=== PATIENT | female | born 1945 | race Caucasian/White ===

== ENCOUNTER → 2016-12-16 | Outpatient (CLI) | payer MEDICARE ==
--- NOTE | 2016-12-19 11:07 | MM ---
Reason for exam: screening (asymptomatic). Last mammogram was performed 1 year ago. History: Patient is postmenopausal. Family history of endometrial cancer in cousin. Benign MG stereo VAD BX LT of the left breast, December 10, 2014. Physical Findings: A clinical breast exam by your physician is recommended on an annual basis and results should be correlated with mammographic findings. MG 3D Screening Mammo W/Cad Bilateral CC and MLO view(s) were taken. Prior study comparison: December 16, 2015, bilateral MG 3d screening mammo w/cad. June 12, 2015, left breast MG 3d diag mammo w/cad LT. December 04, 2014, left breast MG work up mamm w CAD LT. There are scattered fibroglandular densities. Previous mammotome biopsy in the left breast. There is no discrete abnormality. ASSESSMENT: Benign, BI-RAD 2 RECOMMENDATION: Routine screening mammogram of both breasts in 1 year.
== END | disposition home or self-care (01) ==
LOC: RADMAMWWP 12:48
PROVIDERS: ATTEND Family Medicine
DX: Z12.31 Encounter for screening mammogram for malignant neoplasm of breast (principal)
CPT/HCPCS: 77063; G0202

== ENCOUNTER 2017-09-26 13:01 | Inpatient (IN) | payer MEDICARE ==
[2017-09-26] MEDS ORDERED: SODIUM CHLORIDE 0.9% 1,000 ML IV STA (15:20)
[2017-09-26 16:40] LABS: Basophils % (A) 1 %; Eosinophils # (A) 0.1 k/uL (0-0.7); Eosinophils % (A) 2 %; HCT 40.2 % (34.0-46.0); HGB 13.6 gm/dL (11.4-16.0); Lymphocytes # (A) 0.9 k/uL (1.0-4.8); Lymphocytes % (A) 12 %; MCH 28.6 pg (25.0-35.0); MCHC 33.8 g/dL (31.0-37.0); MCV 84.6 fL (80.0-100.0); Monocytes # (A) 0.4 k/uL (0-1.0); Monocytes % (A) 6 %; Neutrophils # (A) 5.8 k/uL (1.3-7.7); Neutrophils % (A) 79 %; Platelet Count 157 k/uL (150-450); RBC 4.76 m/uL (3.80-5.40); RDW 13.6 % (11.5-15.5); WBC 7.3 k/uL (3.8-10.6)
[2017-09-26] MEDS: LABETALOL 5 MG/ML VIAL MDV IVP SCH ×2 (16:42→18:00)
--- NOTE | 2017-09-26 16:46 | XR ---
EXAMINATION TYPE: XR chest 2V DATE OF EXAM: 09/26/2017 COMPARISON: NONE HISTORY: Chest pain TECHNIQUE: Frontal and lateral views of the chest are obtained. FINDINGS: There is no heart failure nor confluent pneumonic infiltrate. Thoracic aorta is atheromato us. There are sternal wires. Costophrenic angles are clear. There is some spurring in the thoracic sp ine. IMPRESSION: No active cardiopulmonary disease.
[2017-09-26 16:48] LABS: Albumin 4.2 g/dL (3.5-5.0); Calcium 9.7 mg/dL (8.4-10.2); Potassium 4.7 mmol/L (3.5-5.1); Total Protein 7.1 g/dL (6.3-8.2)
[2017-09-26 17:01] LABS: Partial Thromboplastin Time 28.1 sec (22.0-30.0)
[2017-09-26 17:15] LABS: Troponin I 0.09 ng/mL (0.000-0.034)
[2017-09-26] MEDS ORDERED: ENALAPRILAT 1.25 MG/ML 1 ML VIAL IVP STA ×2 (18:34→20:38)
--- NOTE | 2017-09-26 18:54 | ED ---
General Adult HPI - General Chief complaint: Recheck/Abnormal Lab/Rx Stated complaint: Cannot Eat Time Seen by Provider: 09/26/17 15:14 Source: patient Mode of arrival: wheelchair Limitations: no limitations - History of Present Illness Initial comments: 72 years old female comes in with a very high blood pressure and is saying she has not been able to eat or drink anything since Monday she has a history of esophageal narrowing she has seen Dr. Daniel in the past for esophageal dilatation blood pressure is quite high because she was not able to take her medications she tried to drink and no eating something comes right back. She denies any headache no neck stiffness, has nausea and been throwing up every time she tries to eat no abdominal pain no frequency urgency dysuria - Related Data Home Medications Medication Instructions Recorded Confirmed Aspirin EC [Ecotrin] 81 mg PO DAILY 11/03/15 09/26/17 Loratadine [Claritin] 10 mg PO DAILY 11/03/15 09/26/17 Metoprolol Tartrate [Lopressor] 50 mg PO BID 11/03/15 09/26/17 Omeprazole [PriLOSEC] 20 mg PO DAILY 11/03/15 09/26/17 Ramipril [Altace] 5 mg PO DAILY 11/03/15 09/26/17 Simvastatin [Zocor] 40 mg PO DAILY 11/03/15 09/26/17 Sucralfate [Carafate] 1 gm PO BID 11/03/15 09/26/17 amLODIPine [Norvasc] 2.5 mg PO DAILY 09/26/17 09/26/17 Allergies Allergy/AdvReac Type Severity Reaction Status Date / Time ibuprofen [From Motrin] Allergy Unknown Verified 09/26/17 15:45 Penicillins Allergy Anaphylaxis Verified 09/26/17 15:45 Sulfa (Sulfonamide Allergy Unknown Verified 09/26/17 15:45 Antibiotics) Review of Systems ROS Statement: Those systems with pertinent positive or pertinent negative responses have been documented in the HPI. ROS Other: All systems not noted in ROS Statement are negative. Past Medical History Past Medical History: Deep Vein Thrombosis (DVT), GERD/Reflux, Hyperlipidemia, Hypertension Additional Past Medical History / Comment(s): dysphagia, hx of dvt in leg, seasonal allergies History of Any Multi-Drug Resistant Organisms: None Reported Past Surgical History: Appendectomy, Hysterectomy, Tonsillectomy Additional Past Surgical History / Comment(s): valve replacement, previous egd with dilation Past Anesthesia/Blood Transfusion Reactions: No Reported Reaction Past Psychological History: No Psychological Hx Reported Smoking Status: Never smoker Past Alcohol Use History: None Reported Past Drug Use History: None Reported General Exam - General Exam Comments Initial Comments: General: The patient is awake and alert, in no distress no respiratory distress she is not drooling like typical esophageal foreign body well Skin: Skin is warm and dry and no rashes or lesions are noted. Eye: Pupils are equal, round and reactive to light, extra-ocular movements are intact; there is normal conjunctiva bilaterally. Ears, nose, mouth and throat: There are moist mucous membranes and no oral lesions. Neck: The neck is supple, there is no tenderness or JVD. Cardiovascular: There is a regular rate and rhythm. No murmur, rub or gallop is appreciated. Respiratory: To auscultation bilateral, no wheezing no rhonchi no distress respiratory san noticed Gastrointestinal: Soft, non-distended, non-tender abdomen without masses or organomegaly noted. There is no rebound or guarding present. Bowel sounds are unremarkable. Back: There is no tenderness to palpation in the midline. There is no obvious deformity. Musculoskeletal: Normal ROM, no tenderness, There is no pedal edema. There is no calf tenderness or swelling. No cords were appreciated. Neurological: CN II-XII intact, Cranial nerves III through XII are intact. There are no obvious motor or sensory deficits. Coordination appears grossly intact. Speech is normal. Psychiatric: Cooperative, appropriate mood & affect, normal judgment. Limitations: no limitations Course Vital Signs 09/26/17 09/26/17 09/26/17 14:03 16:45 17:38 Temperature 98.1 F Pulse Rate 78 81 85 Respiratory 20 18 16 Rate Blood Pressure 219/92 155/66 184/78 O2 Sat by Pulse 98 98 98 Oximetry 09/26/17 18:05 Temperature Pulse Rate 78 Respiratory 20 Rate Blood Pressure 181/74 O2 Sat by Pulse 99 Oximetry EKG Findings - EKG Comments: EKG Findings:: EKG is normal sinus rhythm ventricular rate is 84 OK interval is 160 QRS duration is 88 QT/QTc is 414/43 and aVF this EKG does not reveal any ST elevation or ST depression noticed T-wave inversion in aVL Medical Decision Making - Lab Data Result diagrams: 09/26/17 16:21 09/26/17 16:21 Lab Results 09/26/17 09/26/17 09/26/17 Range/Units 16:21 16:21 16:21 WBC 7.3 (3.8-10.6) k/uL RBC 4.76 (3.80-5.40) m/uL Hgb 13.6 (11.4-16.0) gm/dL Hct 40.2 (34.0-46.0) % MCV 84.6 (80.0-100.0) fL MCH 28.6 (25.0-35.0) pg MCHC 33.8 (31.0-37.0) g/dL RDW 13.6 (11.5-15.5) % Plt Count 157 (150-450) k/uL Neutrophils % 79 % Lymphocytes % 12 % Monocytes % 6 % Eosinophils % 2 % Basophils % 1 % Neutrophils # 5.8 (1.3-7.7) k/uL Lymphocytes # 0.9 L (1.0-4.8) k/uL Monocytes # 0.4 (0-1.0) k/uL Eosinophils # 0.1 (0-0.7) k/uL Basophils # 0.0 (0-0.2) k/uL PT (9.0-12.0) sec INR (<1.2) APTT (22.0-30.0) sec Sodium 145 (137-145) mmol/L Potassium 4.7 (3.5-5.1) mmol/L Chloride 107 (98-107) mmol/L Carbon Dioxide 24 (22-30) mmol/L Anion Gap 14 mmol/L BUN 23 H (7-17) mg/dL Creatinine 1.09 H (0.52-1.04) mg/dL Est GFR (CKD-EPI)AfAm 59 (>60 ml/min/1.73 sqM) Est GFR (CKD-EPI)NonAf 51 (>60 ml/min/1.73 sqM) Glucose 83 (74-99) mg/dL Calcium 9.7 (8.4-10.2) mg/dL Magnesium 2.0 (1.6-2.3) mg/dL Total Bilirubin 1.0 (0.2-1.3) mg/dL AST 29 (14-36) U/L ALT 20 (9-52) U/L Alkaline Phosphatase 84 (38-126) U/L Total Creatine Kinase 92 (30-135) U/L CK-MB (CK-2) 1.0 (0.0-2.4) ng/mL CK-MB (CK-2) Rel Index 1.1 Troponin I 0.090 H* (0.000-0.034) ng/mL Total Protein 7.1 (6.3-8.2) g/dL Albumin 4.2 (3.5-5.0) g/dL Lipase 55 (23-300) U/L 09/26/17 Range/Units 16:21 WBC (3.8-10.6) k/uL RBC (3.80-5.40) m/uL Hgb (11.4-16.0) gm/dL Hct (34.0-46.0) % MCV (80.0-100.0) fL MCH (25.0-35.0) pg MCHC (31.0-37.0) g/dL RDW (11.5-15.5) % Plt Count (150-450) k/uL Neutrophils % % Lymphocytes % % Monocytes % % Eosinophils % % Basophils % % Neutrophils # (1.3-7.7) k/uL Lymphocytes # (1.0-4.8) k/uL Monocytes # (0-1.0) k/uL Eosinophils # (0-0.7) k/uL Basophils # (0-0.2) k/uL PT 10.0 (9.0-12.0) sec INR 1.0 (<1.2) APTT 28.1 (22.0-30.0) sec Sodium (137-145) mmol/L Potassium (3.5-5.1) mmol/L Chloride (98-107) mmol/L Carbon Dioxide (22-30) mmol/L Anion Gap mmol/L BUN (7-17) mg/dL Creatinine (0.52-1.04) mg/dL Est GFR (CKD-EPI)AfAm (>60 ml/min/1.73 sqM) Est GFR (CKD-EPI)NonAf (>60 ml/min/1.73 sqM) Glucose (74-99) mg/dL Calcium (8.4-10.2) mg/dL Magnesium (1.6-2.3) mg/dL Total Bilirubin (0.2-1.3) mg/dL AST (14-36) U/L ALT (9-52) U/L Alkaline Phosphatase (38-126) U/L Total Creatine Kinase (30-135) U/L CK-MB (CK-2) (0.0-2.4) ng/mL CK-MB (CK-2) Rel Index Troponin I (0.000-0.034) ng/mL Total Protein (6.3-8.2) g/dL Albumin (3.5-5.0) g/dL Lipase (23-300) U/L Critical Care Time Total Critical Care Time: 45 Critical Care Time: On arrival patient's blood pressure was 219 systolic, labetalol IV was tried, it did drop the blood pressure slightly tender patient will go up there in the meantime we noticed her troponin was elevated they could be something secondary to very high blood pressure sore and organ damage no EKG was unremarkable EKG was reviewed by myself I plan to put her on now heparin but then she might need a procedure to dilate her esophagus just wanted go ahead and try to avoid hold off the heparinization because AR trigger massive bleeding when she get her esophageal procedure done in the meantime she will go on now and nitro sugar beta blockers she will go on some IV blood pressure medications just water and dose of Vasotec 2.150 IV to control his blood pressure and she be admitted to Dr. Lemon's office all and discussed with Dr. Lemon with heparinization Disposition Clinical Impression: Esophageal stenosis, Elevated troponin Disposition: ADMITTED IP TO THIS HOSP Condition: Good Referrals: Roshan Rahman MD [Primary Care Provider] - 1-2 days
[2017-09-26] MEDS ORDERED: MORPHINE SULFATE/PF 10MG/10ML VL IVP PRN (18:58)
[2017-09-26] MEDS ORDERED: METOPROLOL TARTRATE 5 MG/5 ML VIAL IVP PRN (19:06)
[2017-09-26] MEDS ORDERED: ENALAPRILAT 1.25 MG/ML 1 ML VIAL IVP PRN (19:06)
[2017-09-26] MEDS: DEXTROSE 5%-0.9% NACL 1,000 ML IV SCH (21:17)
[2017-09-26 23:10] LABS: Troponin I 0.062 ng/mL (0.000-0.034)
[2017-09-27 04:36] LABS: Troponin I 0.05 ng/mL (0.000-0.034)
[2017-09-27 04:44] LABS: Cholesterol 126 mg/dL (<200); HDL Cholesterol 43 mg/dL (40-60); LDL Cholesterol,Calculated 58 mg/dL (0-99); Triglycerides 123 mg/dL (<150)
[2017-09-27] MEDS: NITROGLYCERIN OINT 1 INCH/GM PACKET TOPICAL SCH ×3 (05:33→14:48)
--- NOTE | 2017-09-27 08:47 | P.CONS ---
History of Present Illness - Reason for Consult Consult date: 09/27/17 Dysphagia Requesting physician: Fatou Luciano - History of Present Illness 72-year-old female well known to Dr. Menchaca service the past medical history of tight distal esophageal stricture last dilation 2015. Patient ate a brisket meal on Monday shortly thereafter developed increased chest pain dysphagia with a few emesis of partially undigested food. Denies hematemesis hematochezia melena. She has been unable to take her home medications and presented to the emergency room with elevated blood pressures. She has been given intravenous blood pressure medications with improvement in systolic blood pressures. Presently she is resting comfortably. Denies chest pain or shortness of breath. She is able to swallow very small amount of liquids such as water but has been unable to tolerate any solid substances and Monday. White count 7.3. Hemoglobin 13.6. INR 1.0. Platelet 157. Troponin 0.05- 0.09. Chest x-ray no active cardiopulmonary disease. Review of Systems Constitutional: Denies fever, chills, sweats, weight gain, or loss. HEENT: Negative for migraines, blurred vision or loss, earaches, drainage, tinnitus, oral mucosal lesions, dysphagia, or odynophagia. CARDIAC: Hypertension. Hyperlipidemia. Negative for chest pain, arrhythmias, or palpitation. RESPIRATORY: DVT. Negative for shortness of breath, hemoptysis, cough, or sputum production. GI: See HPI for pertinent findings. : Negative for hematuria, urgency, frequency, polyuria, or dysuria. GYNc: Negative vaginal discharge. MUSCULOSKELETAL: Negative for muscle aches, swelling, arthritis, and arthralgias. NEUROLOGIC: Negative for stroke or TIA. ENDOCRINE: Negative for thyroid problems. SKIN: Negative for rash or itching. PSYCHIATRIC: Negative history for depression and anxiety Past Medical History Past Medical History: Deep Vein Thrombosis (DVT), GERD/Reflux, Hyperlipidemia, Hypertension Additional Past Medical History / Comment(s): dysphagia, hx of dvt in leg, seasonal allergies History of Any Multi-Drug Resistant Organisms: None Reported Past Surgical History: Appendectomy, Hysterectomy, Tonsillectomy Additional Past Surgical History / Comment(s): valve replacement, previous egd with dilation Past Anesthesia/Blood Transfusion Reactions: No Reported Reaction Past Psychological History: No Psychological Hx Reported Smoking Status: Never smoker Past Alcohol Use History: None Reported Past Drug Use History: None Reported Medications and Allergies Home Medications Medication Instructions Recorded Confirmed Type Aspirin EC [Ecotrin] 81 mg PO DAILY 11/03/15 09/26/17 History Loratadine [Claritin] 10 mg PO DAILY 11/03/15 09/26/17 History Metoprolol Tartrate [Lopressor] 50 mg PO BID 11/03/15 09/26/17 History Omeprazole [PriLOSEC] 20 mg PO DAILY 11/03/15 09/26/17 History Ramipril [Altace] 5 mg PO DAILY 11/03/15 09/26/17 History Simvastatin [Zocor] 40 mg PO DAILY 11/03/15 09/26/17 History Sucralfate [Carafate] 1 gm PO BID 11/03/15 09/26/17 History amLODIPine [Norvasc] 2.5 mg PO DAILY 09/26/17 09/26/17 History Allergies Allergy/AdvReac Type Severity Reaction Status Date / Time ibuprofen [From Motrin] Allergy Unknown Verified 09/26/17 15:45 Penicillins Allergy Anaphylaxis Verified 09/26/17 15:45 Sulfa (Sulfonamide Allergy Unknown Verified 09/26/17 15:45 Antibiotics) Physical Exam Vitals: Vital Signs Temp Pulse Resp BP Pulse Ox 09/27/17 07:51 99.4 F 75 14 144/65 98 09/27/17 05:32 73 18 152/65 96 09/27/17 00:09 79 18 152/66 98 09/26/17 21:21 16 166/72 98 09/26/17 20:44 79 18 179/74 99 09/26/17 20:40 181/75 97 09/26/17 20:26 170/70 09/26/17 19:58 76 18 170/72 98 09/26/17 18:05 78 20 181/74 99 09/26/17 17:38 85 16 184/78 98 09/26/17 16:45 81 18 155/66 98 09/26/17 14:03 98.1 F 78 20 219/92 98 General appearance: The patient is alert, oriented, in no acute distress. HET: Head is normocephalic and atraumatic. Pupils are equal and reactive. Oropharynx is clear without lesions. Neck: Supple without lymphadenopathy. Trachea midline. Heart: S1 S2. Regular rate and rhythm. Lungs: No crackles or wheezes are heard. Abdomen: Soft, nontender, nondistended with bowel sounds. No peritoneal signs. No palpable organomegaly or masses. Extremities: Normal skin color and turgor. No cyanosis, rash, ulceration, clubbing, or edema. Radial and pedal pulses are 2/4 bilaterally. Neurological: No focal deficits. Strength and sensation are grossly intact. Results CBC & Chem 7: 09/26/17 16:21 09/26/17 16:21 Labs: Abnormal Lab Results - Last 24 Hours (Table) 09/26/17 09/26/17 09/26/17 Range/Units 16:21 16:21 16:21 Lymphocytes # 0.9 L (1.0-4.8) k/uL BUN 23 H (7-17) mg/dL Creatinine 1.09 H (0.52-1.04) mg/dL Troponin I 0.090 H* (0.000-0.034) ng/mL 09/26/17 09/27/17 Range/Units 21:55 03:27 Lymphocytes # (1.0-4.8) k/uL BUN (7-17) mg/dL Creatinine (0.52-1.04) mg/dL Troponin I 0.062 H* 0.050 H* (0.000-0.034) ng/mL Assessment and Plan (1) Dysphagia Narrative/Plan: Acute dysphagia suspect secondary to recurrent distal esophageal stricture with history of tight distal esophageal stricture status post EGD dilation 2016 possible foreign body. Current Visit: Yes Status: Acute Code(s): R13.10 - DYSPHAGIA, UNSPECIFIED SNOMED Code(s): 91517414 (2) History of esophageal stricture Current Visit: Yes Status: Acute Code(s): Z87.19 - PERSONAL HISTORY OF OTHER DISEASES OF THE DIGESTIVE SYSTEM SNOMED Code(s): 111336558 (3) Hypertension Current Visit: Yes Status: Acute Code(s): I10 - ESSENTIAL (PRIMARY) HYPERTENSION SNOMED Code(s): 54555008 Plan: 1. EGD. Keep nothing by mouth. 2. Protonix 40 mg IV daily. The health lead has discussed the risks, benefits and alternative therapies for the above-mentioned procedure and for both sedation/analgesia as well as necessary blood product administration, if indicated, as they pertain to this patient. The patient has indicated understanding and acceptance of the risks and procedures discussed. Thank you for this kind referral and the opportunity to participate in the care of your patient. This consultation was discussed with Dr. Menchaca. The impression and plan of care have been directed as dictated.
[2017-09-27] MEDS ORDERED: ASPIRIN 325 MG TAB PO SCH (09:00)
[2017-09-27] MEDS: PANTOPRAZOLE 40 MG/10 ML VIAL IVP SCH (09:35)
[2017-09-27] MEDS: DEXTROSE 5%-0.9% NACL 1,000 ML IV SCH ×2 (09:38→20:36)
[2017-09-27 10:46] LABS: Appearance,Urine Cloudy (Clear); Bacteria,Urine Rare /hpf; Bilirubin,Urine Negative (Negative); Blood,Urine Negative (Negative); Color,Urine Yellow; Glucose,Urine (UA) Negative (Negative); Ketones,Urine 1+ (Negative); Leukocyte Esterase,Urine Large (Negative); Mucus,Urine Rare /hpf; Nitrite,Urine Negative (Negative); PH, Urine 6.5 (5.0-8.0); Protein,Urine Trace (Negative); RBC,Urine 1 /hpf (0-5); Specific Gravity,Urine 1.018 (1.001-1.035); Squamous Epithelial Cell,Urine 4 /hpf (0-4); WBC,Urine 76 /hpf (0-5)
--- NOTE | 2017-09-27 11:20 | CONS ---
CONSULTATION CHIEF COMPLAINT: Elevated troponin. 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 Patient does not have any cardiac symptoms. She denies chest pain, difficulty in breathing, palpitations, or syncope. She is being treated with intravenous medications and the blood pressure is somewhat better controlled. EKG does not reveal acute ischemic changes. For unclear reasons, patient had troponins drawn in the ER that came back elevated due to which Cardiology has been consulted. Her troponins were at 0.09, 0.06 and 0.05. She has mild renal insufficiency with a BUN of 23 and creatinine of 1.29 and her troponin elevation could be related to this. PAST MEDICAL HISTORY: Significant for valve replacement, hypertension, dyslipidemia. CURRENT MEDICATIONS: Include Norvasc 5 q. daily, Carafate 1 mg, Zocor 40 q. daily, Altace 5 q. daily, omeprazole, Lopressor 50 b.i.d., Claritin and aspirin. ALLERGIES: IBUPROFEN, PENICILLIN and SULFA. FAMILY HISTORY: Negative for premature coronary artery disease. SOCIAL HISTORY: Negative for current smoking, EtOH abuse, or drug abuse. REVIEW OF SYSTEMS: HEENT is unremarkable. CARDIAC: As described above. RESPIRATORY: Negative. GI: Significant for dysphagia. PSYCHOSOCIAL: Negative. ENDOCRINE: Negative. DERM: Negative. CONSTITUTIONAL: Negative. ONCOLOGICAL: Negative. Rest of the system review is not relevant. PHYSICAL EXAM: Patient is comfortable at rest. Afebrile. Heart rate is 80 beats per minute, blood pressure is 158/70, respiratory rate is 18. Chest exam reveals good air entry bilaterally. Heart exam reveals first and second heart sounds. Has an ejection systolic murmur in the left lower sternal border. Abdomen is soft. Exam of extremities did not reveal edema. Peripheral pulses are felt. LABS: Show that the hemoglobin is 13.6, platelet count is 157. BUN is 23, creatinine is 1.09, potassium is 4.7. Tropes are mildly elevated. LDL cholesterol is 58. ASSESSMENT: 1. Mild troponin elevation of unclear clinical significance. 2. Dysphagia. 3. Uncontrolled hypertension. PLAN: Patient will be treated with intravenous Vasotec and Lopressor. If necessary, hydralazine and once oral medications can be resumed, we will resume it. I will obtain a 2D echo to assess her prosthetic valve and to rule out any wall motion abnormalities. When patient gets better, we can consider an outpatient stress test if necessary. JOSE / MATEUS: [id number] /
[2017-09-27] MEDS ORDERED: fentaNYL (PF) 50 MCG/ML 2 ML AMP ONE (13:24)
[2017-09-27] MEDS ORDERED: PROPOFOL 10 MG/ML 20 ML VIAL IV ONE (13:24)
[2017-09-27] MEDS ORDERED: LIDOCAINE 1% INJ 10MG/ML (20 ML MDV) ONE (13:24)
[2017-09-27] MEDS ORDERED: IV FLUID CONTINUATION 1,000 ML IV ONE (13:25)
--- NOTE | 2017-09-27 13:40 | P.PCN ---
Date of Procedure: 09/27/17 Procedure(s) Performed: BRIEF HISTORY: Patient is a 72-year-old, pleasant, white female, admitted to the hospital because of acute for dysphagia. She has history of esophageal stricture for several years for which she undergoes periodic upper endoscopy with dilation. She was eating meat on Monday night and could not swallow any further. She came to the emergency room last night and was admitted hospital because of uncontrolled hypertension. She is scheduled for an upper endoscopy and foreign body removal today. PROCEDURE PERFORMED: Esophagoscopy with foreign body removal PREOPERATIVE DIAGNOSIS: Acute food dysphagia and history of esophageal stricture. IV sedation per anesthesia. PROCEDURE: After informed consent was obtained, the patient was brought into the endoscopy unit. IV sedation was administered by Anesthesia under continuous monitoring. Initially the Olympus GIF-140 video endoscope was inserted into the mouth. Esophagus intubated without any difficulty. It was gradually advanced into the distal esophagus where there was a piece of meat impacted. Using a snare, the food bolus was removed without any difficulty. There was evidence of distal esophageal stricture identified at 35 cm from the incisors and the scope could not be advanced to this area. As the patient has been on aspirin I did not do endoscopic dilation today .The rest of the esophagus appeared normal. There were no erosions or ulcerations seen and the patient tolerated the procedure well. IMPRESSION: 1. Food impaction in the distal esophagus status post removal as described above. 2. Distal esophageal stricture. RECOMMENDATIONS: The findings of this examination were discussed with the patient as well as a family. She'll be started on clear liquid diet will be advanced as tolerated.
[2017-09-27] MEDS: LABETALOL 5 MG/ML VIAL MDV IVP SCH ×8 (13:52→14:01)
[2017-09-27] MEDS ORDERED: MORPHINE ORAL SOLN 10 MG/5 ML CUP PO PRN (14:59)
[2017-09-27 15:29] VITALS: BMI 45.3
--- NOTE | 2017-09-27 17:05 | P.HPIM ---
History of Present Illness H&P Date: 09/27/17 72 years old female with past medical history of DVT, hyperlipidemia, hypertension, GERD, history of bioprosthetic valve with past medical history of esophageal stricture last dilated in 2016 comes in with increased chest pain associated with difficulty swallowing some solid food since Monday. Patient states she is unable to eat or drink or take her medication for the past 2 days. Patient was taken for EGD early this morning found to have a brisket in the distal esophageal which was removed. Esophageal dilation was not done as patient was on aspirin. Patient was evaluated post procedure. His resting comfortably on clear liquid diet. Is able to tolerate liquid without any nausea or vomiting. Denies any cough, shortness of breath or chest pain. Cardiology was consulted for elevation of troponin which were downtrending. Patient is admitted for dysphagia. Review of Systems Constitutional: Denies chills, Denies fever, Denies lethargy, Denies malaise, Denies poor appetite, Denies weakness, Denies weight loss Eyes: denies decreased vision, denies diplopia, denies discharge, denies pain Ears: deny: decreased hearing Ears, nose, mouth and throat: Denies dental pain, Denies headache, Denies nasal discharge, Denies nose pain Cardiovascular: Endorses chest pain prior to procedure, Denies decreased exercise tolerance, Denies edema, Denies high blood pressure, Denies irregular heart beat, Denies palpitations, Denies paroxysmal nocturnal dyspnea, Denies rapid heart beat, Denies shortness of breath Respiratory: Denies congestion, Denies cough, Denies cough with sputum, Denies dyspnea, Denies home oxygen, Denies wheezing Gastrointestinal: Denies abdominal pain, Denies change in bowel habits, Denies coffee ground emesis, Denies early satiety, Denies excessive gas, Denies heartburn, Denies hematemesis, Denies hematochezia, Denies loss of appetite, Denies nausea, Denies vomiting, was positive for nausea and vomiting prior to admission Genitourinary: Denies dysuria, Denies flank pain, Denies kidney stones, Denies menorrhagia, Denies urgency, Denies urinary frequency Musculoskeletal: Denies gait dysfunction, Denies limitation of motion, Denies morning stiffness, Denies muscle cramps Integumentary: Denies rash, Denies wounds, Denies brittle nails, Denies change in hair/nails, Denies darkening of skin Neurological: Denies balance difficulties, Denies change in speech, Denies double vision, Denies gait dysfunction, Denies loss of vision, Denies motor disturbance, Denies numbness, Denies paralysis, Denies paresthesias, Denies seizures Psychiatric: Denies anxiety, Denies depression Endocrine: Denies excessive sweating, Denies excessive thirst, Denies high blood sugars, Denies palpitations Hematologic/Lymphatic: Denies easy bruising, Denies lymphadenopathy Past Medical History Past Medical History: Cancer, Deep Vein Thrombosis (DVT), GERD/Reflux, Hyperlipidemia, Hypertension, Osteoarthritis (OA) Additional Past Medical History / Comment(s): Esophageal strictures, dysphagia, DVT in leg (unknown laterality), uterine cancer with hysterectomy, sinuse problems, tinnitis on occasion R ear. History of Any Multi-Drug Resistant Organisms: None Reported Past Surgical History: Adenoidectomy, Appendectomy, Cardiac Valve Replacement, Section, Hysterectomy, Tonsillectomy Additional Past Surgical History / Comment(s): Cardiac valve replacement (pt does not recall which valve), previous egds with dilations, benign 26 pound mass removed from ovary, bilateral oophorectomies, colonoscopy. Past Anesthesia/Blood Transfusion Reactions: No Reported Reaction Smoking Status: Former smoker - Past Family History Father Additional Family Medical History / Comment(s): Father committed suicide at the age of 59 yrs. Mother Family Medical History: Hypertension Additional Family Medical History / Comment(s): Mother had fertility problems. She at the age of 87yrs. Medications and Allergies Home Medications Medication Instructions Recorded Confirmed Type Aspirin EC [Ecotrin] 81 mg PO DAILY 11/03/15 09/26/17 History Loratadine [Claritin] 10 mg PO DAILY 11/03/15 09/26/17 History Metoprolol Tartrate [Lopressor] 50 mg PO BID 11/03/15 09/26/17 History Omeprazole [PriLOSEC] 20 mg PO DAILY 11/03/15 09/26/17 History Ramipril [Altace] 5 mg PO DAILY 11/03/15 09/26/17 History Simvastatin [Zocor] 40 mg PO DAILY 11/03/15 09/26/17 History Sucralfate [Carafate] 1 gm PO BID 11/03/15 09/26/17 History amLODIPine [Norvasc] 2.5 mg PO DAILY 09/26/17 09/26/17 History Allergies Allergy/AdvReac Type Severity Reaction Status Date / Time ibuprofen [From Motrin] Allergy Unknown Verified 09/26/17 15:45 Penicillins Allergy Anaphylaxis Verified 09/26/17 15:45 Sulfa (Sulfonamide Allergy Unknown Verified 09/26/17 15:45 Antibiotics) Physical Exam Vitals: Vital Signs Temp Pulse Pulse Resp BP BP Pulse Ox 09/27/17 15:30 74 179/69 96 09/27/17 15:15 78 164/75 98 09/27/17 15:00 78 157/73 96 09/27/17 14:45 86 164/75 96 09/27/17 14:30 97 F L 91 16 137/75 91 L 09/27/17 13:26 97.9 F 84 18 129/79 97 09/27/17 12:43 97.9 F 84 18 129/79 97 09/27/17 12:32 85 16 170/55 97 09/27/17 11:07 85 16 151/69 97 09/27/17 10:50 97.2 F L 82 16 196/75 97 09/27/17 09:28 74 16 179/80 99 09/27/17 07:51 99.4 F 75 14 144/65 98 09/27/17 05:32 73 18 152/65 96 09/27/17 00:09 79 18 152/66 98 09/26/17 21:21 16 166/72 98 09/26/17 20:44 79 18 179/74 99 09/26/17 20:40 181/75 97 09/26/17 20:26 170/70 09/26/17 19:58 76 18 170/72 98 09/26/17 18:05 78 20 181/74 99 09/26/17 17:38 85 16 184/78 98 09/26/17 16:45 81 18 155/66 98 Intake and Output 09/27/17 09/27/17 09/27/17 06:59 14:59 22:59 Intake Total 150 Balance 150 Intake: IV 150 Other: Weight 108.862 kg - Constitutional General appearance: cooperative, no acute distress, obese - EENT Eyes: anicteric sclerae, PERRLA, normal appearance ENT: hearing grossly normal - Neck Neck: no lymphadenopathy, normal ROM, no other, no rigidity, no stridor, no thyromegaly - Respiratory Respiratory: bilateral: CTA, negative: diminished, dullness, rales, rhonchi - Cardiovascular Rhythm: regular Heart sounds: normal: S1, S2 Abnormal Heart Sounds: 2+ systolic murmur with positive click, no diastolic murmur, no rub, no S3 Gallop, no S4 Gallop - Gastrointestinal General gastrointestinal: normal bowel sounds, soft nontender - Integumentary Integumentary: no rash - Neurologic Neurologic: CNII-XII intact - Musculoskeletal Musculoskeletal: strength equal bilaterally - Psychiatric Psychiatric: A&O x's 3, appropriate affect Results CBC & Chem 7: 09/26/17 16:21 09/26/17 16:21 Labs: Abnormal Lab Results - Last 24 Hours (Table) 09/26/17 09/26/17 09/26/17 Range/Units 16:21 16:21 16:21 Lymphocytes # 0.9 L (1.0-4.8) k/uL BUN 23 H (7-17) mg/dL Creatinine 1.09 H (0.52-1.04) mg/dL Troponin I 0.090 H* (0.000-0.034) ng/mL Urine Appearance (Clear) Urine Protein (Negative) Urine Ketones (Negative) Ur Leukocyte Esterase (Negative) Urine WBC (0-5) /hpf Urine Bacteria (None) /hpf Urine Mucus (None) /hpf 09/26/17 09/27/17 09/27/17 Range/Units 21:55 03:27 10:29 Lymphocytes # (1.0-4.8) k/uL BUN (7-17) mg/dL Creatinine (0.52-1.04) mg/dL Troponin I 0.062 H* 0.050 H* (0.000-0.034) ng/mL Urine Appearance Cloudy H (Clear) Urine Protein Trace H (Negative) Urine Ketones 1+ H (Negative) Ur Leukocyte Esterase Large H (Negative) Urine WBC 76 H (0-5) /hpf Urine Bacteria Rare H (None) /hpf Urine Mucus Rare H (None) /hpf Thrombosis Risk Factor Assmnt - DVT/VTE Prophylaxis DVT/VTE Prophylaxis: Pharmacologic Prophylaxis ordered - Choose All That Apply Any of the Below Risk Factors Present?: Yes Each Factor Represents 1 point: Obesity (BMI >25) Other Risk Factors: Yes Each Risk Factor Represents 2 Points: Age 61-74 years, Malignancy Each Risk Factor Represents 3 Points: History of DVT/PE Other congenital or acquired thrombophilia - If yes, enter type in comment: No Thrombosis Risk Factor Assessment Total Risk Factor Score: 8 Thrombosis Risk Factor Assessment Level: High Risk Assessment and Plan Plan: 1 acute chest pain secondary to food impaction status post removal on 09/2007. Currently chest pain-free. Continue clear liquid diet oral medication can be resumed. Protonix 40 IV daily 2 troponinemia likely secondary to hypertensive cardiovascular disease. Downtrending. EKG with no ST or T-wave changes. Echo ordered. Cardiology evaluation negative for ACS 3 hypertension uncontrolled continue patient on Norvasc, ramipril, metoprolol. Enalaprilat can be used IV for systolic pressures more than 180 4 Esophageal stricture last dilation in 2016. Follow-up with Dr. Daniel for outpatient dilation if needed 5 hyperlipidemia continue Zocor 40 mg daily 6 history of bioprosthetic valve. Echo ordered. 7 DVT prophylaxis with heparin every 12 8 disposition likely discharge tomorrow
[2017-09-27] MEDS: HEPARIN SODIUM,PORCINE 5,000 UNIT/ML 1 ML VIAL SQ SCH (20:37)
[2017-09-27] MEDS: METOPROLOL TARTRATE 50 MG TAB PO SCH (20:37)
--- NOTE | 2017-09-27 21:30 | ECHOF ---
Referral Reason:abn trop MEASUREMENTS -------- HEIGHT: 154.9 cm WEIGHT: 108.9 kg BP: 151/61 RVIDd: 3.1 cm (< 3.3) IVSd: 1.3 cm (0.6 - 1.1) LVIDd: 4.2 cm (3.9 - 5.3) LVPWd: 1.4 cm (0.6 - 1.1) EDV(Teich): 81 ml IVSs: 1.8 cm LVIDs: 2.7 cm LVPWs: 1.7 cm %IVS Thck: 38 % ESV(Teich): 27 ml EF(Teich): 66 % %FS: 36 % SV(Teich): 53 ml LA Diam: 3.5 cm (2.7 - 3.8) IVC: 1.7 cm LALs A4C: 5.3 cm LAAs A4C: 19.9 cm LAESV A-L A4C: 64 ml LAESV MOD A4C: 60 ml LALs A2C: 5.6 cm LAAs A2C: 21.1 cm LAESV A-L A2C: 68 ml LAESV MOD A2C: 64 ml LAESV(A-L): 68 ml LAESV Index (A-L): 33.11 ml/m Ao Diam: 3.2 cm (2.0 - 3.7) MV EXCURSION: 15.792 mm (> 18.000) MV EF SLOPE: 35 mm/s (70 - 150) EPSS: 0.5 cm MV E Ian: 1.11 m/s MV DecT: 279 ms MV Dec [place]: 4.0 m/s MV A Ian: 1.25 m/s MV E/A Ratio: 0.89 MV PHT: 81 ms E/E': 20.30 E': 0.05 m/s LVOT Vmax: 2.52 m/s LVOT maxP.30 mmHg LVOT Vmax: 2.50 m/s LVOT Vmean: 1.63 m/s LVOT maxP.09 mmHg LVOT meanP.15 mmHg LVOT Env.Ti: 337 ms LVOT VTI: 55.1 cm AV Vmax: 3.51 m/s AV maxP.18 mmHg AV Vmax: 3.57 m/s AV Vmean: 2.51 m/s AV maxP.02 mmHg AV meanP.34 mmHg AV Env.Ti: 325 ms AV VTI: 81.7 cm AR Vmax: 3.49 m/s AR maxP.73 mmHg AR PHT: 633 ms AR Dec Time: 2183 ms AR Dec [place]: 1.6 m/s TR Vmax: 2.85 m/s TR maxP.39 mmHg RAP: 5.00 mmHg RVSP: 37.39 mmHg FINDINGS -------- Sinus rhythm. This was a technically adequate study. The left ventricular size is normal. There is mild concentric left ventricular hypertrophy. Overa ll left ventricular systolic function is normal with, an EF between 55 - 60 %. The right ventricle is normal in size. LA is midly dilated 29-33ml/m2. The right atrium is normal in size. Peak/mean gradient across the Aortic Valve is 51.02mmHg / 28.34mmHg. There is mild nela-prosthetic regurgitation of the bioprosthetic aortic valve. There is mild stenosis of the bioprosthetic aortic valve. The mitral valve leaflets are mildly thickened. Mild mitral annular calcification present. Mild m itral regurgitation is present. Mild tricuspid regurgitation present. There is mild pulmonary hypertension. The right ventricular systolic pressure, as measured by Doppler, is 37.39mmHg. There is no pulmonic regurgitation present. The aortic root size is normal. Normal inferior vena cava with normal inspiratory collapse consistent with estimated right atrial pre ssure of 5 mmHg. There is no pericardial effusion. CONCLUSIONS -------- 1. Sinus rhythm. 2. This was a technically adequate study. 3. The left ventricular size is normal. 4. There is mild concentric left ventricular hypertrophy. 5. Overall left ventricular systolic function is normal with, an EF between 55 - 60 %. 6. The right ventricle is normal in size. 7. LA is midly dilated 29-33ml/m2. 8. The right atrium is normal in size. 9. Peak/mean gradient across the Aortic Valve is 51.02mmHg / 28.34mmHg. 10. There is mild nela-prosthetic regurgitation of the bioprosthetic aortic valve. 11. There is mild stenosis of the bioprosthetic aortic valve. 12. The mitral valve leaflets are mildly thickened. 13. Mild mitral annular calcification present. 14. Mild mitral regurgitation is present. 15. Mild tricuspid regurgitation present. 16. There is mild pulmonary hypertension. 17. The right ventricular systolic pressure, as measured by Doppler, is 37.39mmHg. 18. There is no pulmonic regurgitation present. 19. The aortic root size is normal. 20. Normal inferior vena cava with normal inspiratory collapse consistent with estimated right atrial pressure of 5 mmHg. 21. There is no pericardial effusion. JOCKEY VALET: Keisha Claudio RDCS
[2017-09-28 03:21] VITALS: PULSE 74
[2017-09-28 08:00] LABS: Basophils % (A) 1 %; Eosinophils # (A) 0.3 k/uL (0-0.7); Eosinophils % (A) 5 %; HCT 34.9 % (34.0-46.0); HGB 11.7 gm/dL (11.4-16.0); Lymphocytes # (A) 0.8 k/uL (1.0-4.8); Lymphocytes % (A) 15 %; MCH 28.9 pg (25.0-35.0); MCHC 33.6 g/dL (31.0-37.0); MCV 86.1 fL (80.0-100.0); Mean Platelet Volume 8.7; Monocytes # (A) 0.5 k/uL (0-1.0); Monocytes % (A) 10 %; Neutrophils # (A) 3.7 k/uL (1.3-7.7); Neutrophils % (A) 68 %; Platelet Count 131 k/uL (150-450); RBC 4.05 m/uL (3.80-5.40); RDW 13.7 % (11.5-15.5); WBC 5.5 k/uL (3.8-10.6)
[2017-09-28 08:14] VITALS: BP 162/73; RESP 14; TEMP 97.7
[2017-09-28 08:17] LABS: Albumin 3.2 g/dL (3.5-5.0); Calcium 8.5 mg/dL (8.4-10.2); Total Bilirubin 0.9 mg/dL (0.2-1.3); Total Protein 5.7 g/dL (6.3-8.2)
[2017-09-28] MEDS: HEPARIN SODIUM,PORCINE 5,000 UNIT/ML 1 ML VIAL SQ SCH (08:22)
[2017-09-28] MEDS: PANTOPRAZOLE 40 MG/10 ML VIAL IVP SCH (08:22)
[2017-09-28] MEDS: METOPROLOL TARTRATE 50 MG TAB PO SCH (08:22)
[2017-09-28] MEDS: DEXTROSE 5%-0.9% NACL 1,000 ML IV SCH (08:34)
[2017-09-28 08:42] LABS: Potassium 4.2 mmol/L (3.5-5.1)
[2017-09-28] MEDS ORDERED: ATORVASTATIN 20 MG TAB PO SCH (09:00)
[2017-09-28] MEDS ORDERED: amLODIPine 2.5 MG TAB PO SCH (09:00)
[2017-09-28] MEDS ORDERED: LISINOPRIL 20 MG TAB PO SCH (09:00)
[2017-09-28] MEDS ORDERED: ASPIRIN 81 MG PO SCH (09:00)
--- NOTE | 2017-09-28 09:33 | P.PN ---
Subjective Progress Note Date: 09/28/17 Principal diagnosis: dysphagia esophageal stricture Tolerating advanced diet. s/p EGD yesterday findings of distal esophageal stricture redemonstrated food impaction removed. No dilation performed. Denies chest pain. Objective - Vital Signs Vital signs: Vital Signs Temp 97.7 F 09/28/17 07:00 Pulse 74 09/28/17 03:20 Resp 14 09/28/17 07:00 BP 162/73 09/28/17 07:00 Pulse Ox 97 09/28/17 03:20 Intake & Output 09/27/17 09/28/17 09/28/17 18:59 06:59 18:59 Intake Total 150 2258 118 Balance 150 2258 118 Weight 108.862 kg 109 kg Intake: IV 150 Intake, IV Titration 1018 Amount Dextrose 5%-0.9% NaCl 1, 1018 000 ml @ 83 mls/hr IV . Q12H3M BALBIR Rx#:[id number] Oral 1240 118 Other: # Voids 3 - Exam General appearance: The patient is alert, oriented, in no acute distress. HET: Head is normocephalic and atraumatic. Pupils are equal and reactive. Oropharynx is clear without lesions. Neck: Supple without lymphadenopathy. Trachea midline. Heart: S1 S2. Regular rate and rhythm. Lungs: No crackles or wheezes are heard. Abdomen: Soft, nontender, nondistended with bowel sounds. No peritoneal signs. No palpable organomegaly or masses. Extremities: Normal skin color and turgor. No cyanosis, rash, ulceration, clubbing, or edema. Radial and pedal pulses are 2/4 bilaterally. Neurological: No focal deficits. Strength and sensation are grossly intact. - Labs CBC & Chem 7: 09/28/17 07:37 09/28/17 07:37 Labs: Abnormal Lab Results - Last 24 Hours (Table) 09/27/17 09/28/17 09/28/17 Range/Units 10:29 07:37 07:37 Plt Count 131 L (150-450) k/uL Lymphocytes # 0.8 L (1.0-4.8) k/uL Chloride 113 H (98-107) mmol/L Carbon Dioxide 20 L (22-30) mmol/L Glucose 112 H (74-99) mg/dL Total Protein 5.7 L (6.3-8.2) g/dL Albumin 3.2 L (3.5-5.0) g/dL Urine Appearance Cloudy H (Clear) Urine Protein Trace H (Negative) Urine Ketones 1+ H (Negative) Ur Leukocyte Esterase Large H (Negative) Urine WBC 76 H (0-5) /hpf Urine Bacteria Rare H (None) /hpf Urine Mucus Rare H (None) /hpf Assessment and Plan (1) Dysphagia Narrative/Plan: Secondary to foreign body food impaction underlying distal esophageal stricture Current Visit: Yes Status: Acute Code(s): R13.10 - DYSPHAGIA, UNSPECIFIED SNOMED Code(s): 98913800 (2) History of esophageal stricture Current Visit: Yes Status: Acute Code(s): Z87.19 - PERSONAL HISTORY OF OTHER DISEASES OF THE DIGESTIVE SYSTEM SNOMED Code(s): 359789639 (3) Hypertension Current Visit: Yes Status: Acute Code(s): I10 - ESSENTIAL (PRIMARY) HYPERTENSION SNOMED Code(s): 92670368 Plan: 1. Soft foods as tolerated. No thick breads/meats. 2. RTO 3 weeks outpatient EGD dilation not planned at this time we'll reevaluate in office. 3. Resume all medications. Continue with Prilosec daily. Discharge per medicine. Assessment and plan a care discussed with Dr. Menchaca
[2017-09-28] MEDS ORDERED: amLODIPine 2.5 MG TAB PO STA (11:57)
--- NOTE | 2017-09-28 16:08 | P.DS ---
Providers Date of admission: 09/26/17 18:59 Expected date of discharge: 09/28/17 Attending physician: Fatou Luciano Consults: 09/26/17 18:59 Consult Physician Urgent Consulting Provider: Janeen Dorantes Consult Reason/Comments: Hypertension, elevated troponin Do you want consulting provider notified?: Yes Primary care physician: [facility] Course: 72 years old female with past medical history of DVT, hyperlipidemia, hypertension, GERD, history of bioprosthetic valve with past medical history of esophageal stricture last dilated in 2015 comes in with increased chest pain associated with difficulty swallowing some solid food since Monday. Patient states she is unable to eat or drink or take her medication for the past 2 days. Patient was taken for EGD early this morning found to have a brisket in the distal esophageal which was removed. Esophageal dilation was not done as patient was on aspirin. Patient was evaluated post procedure. His resting comfortably on clear liquid diet. Is able to tolerate liquid without any nausea or vomiting. Denies any cough, shortness of breath or chest pain. Cardiology was consulted for elevation of troponin which were downtrending. Patient is admitted for dysphagia. 09/28: Patient denies any new complaints. Chest pain is gone. Patient has been cleared by GI for discharge with recommendations for soft foods as tolerated. No thick breads or meats. Recheck in 3 weeks in the office. Patient has been seen by cardiology and acute coronary syndrome ruled out. If necessary, may consider outpatient stress test. Echocardiogram reveals EF of 55-60% with mild concentric left ventricular hypertrophy, LA mildly dilated 29-33, mild. Prosthetic regurgitation of the bioprosthetic aortic valve, mild stenosis of the aortic valve, mild mitral regurgitation, mild tricuspid regurgitation, mild pulmonary hypertension. Patient's blood pressure readings are improved with the increase in amlodipine to 5 mg daily. Patient has been instructed to continue omeprazole. Patient will be discharged home today in stable condition. Discharge diagnoses: 1 acute chest pain secondary to food impaction status post removal on 09/27. 2 troponinemia likely secondary to hypertensive cardiovascular disease. Downtrending. EKG with no ST or T-wave changes. 3 hypertension uncontrolled 4 Esophageal stricture last dilation in 2015. Follow-up with Dr. Daniel for outpatient dilation if needed 5 hyperlipidemia 6 history of bioprosthetic valve. Discharge plan: Home Impression and plan of care have been directed as dictated by the signing physician. Leonor Beltran nurse practitioner acting as scribe for signing physician. Patient Condition at Discharge: Good Plan - Discharge Summary Discharge Rx Participant: Yes New Discharge Prescriptions: New amLODIPine [Norvasc] 5 mg PO DAILY #30 tab Continue Sucralfate [Carafate] 1 gm PO BID Simvastatin [Zocor] 40 mg PO DAILY Ramipril [Altace] 5 mg PO DAILY Omeprazole [PriLOSEC] 20 mg PO DAILY Metoprolol Tartrate [Lopressor] 50 mg PO BID Loratadine [Claritin] 10 mg PO DAILY Aspirin EC [Ecotrin Low Dose] 81 mg PO DAILY Discontinued amLODIPine [Norvasc] 2.5 mg PO DAILY Discharge Medication List Aspirin EC [Ecotrin Low Dose] 81 mg PO DAILY 11/03/15 [History] Loratadine [Claritin] 10 mg PO DAILY 11/03/15 [History] Metoprolol Tartrate [Lopressor] 50 mg PO BID 11/03/15 [History] Omeprazole [PriLOSEC] 20 mg PO DAILY 11/03/15 [History] Ramipril [Altace] 5 mg PO DAILY 11/03/15 [History] Simvastatin [Zocor] 40 mg PO DAILY 11/03/15 [History] Sucralfate [Carafate] 1 gm PO BID 11/03/15 [History] amLODIPine [Norvasc] 5 mg PO DAILY #30 tab 09/28/17 [Rx] Follow up Appointment(s)/Referral(s): Chrissie Menchaca MD [STAFF PHYSICIAN] - 10/16/17 4:15 pm Roshan Rahman MD [Primary Care Provider] - 10/06/17 1:30 pm Patient Instructions/Handouts: Esophageal Stricture (DC) Discharge Disposition: HOME SELF-CARE
[2017-09-29] MEDS ORDERED: amLODIPine 5 MG TAB PO SCH (09:00)
== END 2017-09-28 14:05 | disposition home or self-care (01) | DRG 395 ==
LOC: EC 13:01 → 6SEL 18:59 → 5MS5E 09-27 10:34 → 3SUR 09-27 12:19
PROVIDERS: ADMIT Family Medicine; ATTEND Family Medicine
PROC: 0DC38ZZ Extirpation of Matter from Lower Esophagus, Via Natural or Artificial Opening Endoscopic (ICD-10-PCS; principal; 2017-09-26)
DX: T18.128A Food in esophagus causing other injury, initial encounter (principal); I27.20 Pulmonary hypertension, unspecified; I11.9 Hypertensive heart disease without heart failure; I08.3 Combined rheumatic disorders of mitral, aortic and tricuspid valves; E78.5 Hyperlipidemia, unspecified; Z95.4 Presence of other heart-valve replacement; K21.9 Gastro-esophageal reflux disease without esophagitis; K22.2 Esophageal obstruction; N28.9 Disorder of kidney and ureter, unspecified; Z79.82 Long term (current) use of aspirin; Z79.899 Other long term (current) drug therapy; Z82.49 Family history of ischemic heart disease and other diseases of the circulatory system; Z86.718 Personal history of other venous thrombosis and embolism; Z87.891 Personal history of nicotine dependence; Z90.710 Acquired absence of both cervix and uterus; J30.2 Other seasonal allergic rhinitis; Z88.6 Allergy status to analgesic agent; Z88.0 Allergy status to penicillin; Z88.2 Allergy status to sulfonamides; Z53.09 Procedure and treatment not carried out because of other contraindication; T46.5X6A Underdosing of other antihypertensive drugs, initial encounter; Z91.128 Patient's intentional underdosing of medication regimen for other reason
CPT/HCPCS: 36415; 43247; 71046; 80053; 80061; 81001; 82550; 82553; 83690; 83735; 84484; 85025; 85610; 85730; 93005; 93306; 96361; 96374; 96375; 96376; 99291

== ENCOUNTER 2017-10-25 07:18 | Day surgery (SDC) | payer MEDICARE ==
[2017-10-23 10:06] VITALS: BMI 45.3
[~2017-10-25 07:18] MED LIST: LACTATED RINGERS 1,000 ML IV SCH
[2017-10-25 08:38] VITALS: RESP 18; TEMP 97.9
[2017-10-25] MEDS ORDERED: LIDOCAINE 1% 20 ML VIAL (10MG/ML) FOR IV START INTRADERMA ONE (08:54)
[2017-10-25] MEDS ORDERED: GENTAMICIN IN NACL ISO-OSM PMX 80 MG in SALINE 1 100ML.BAG IVPB STA (09:19)
[2017-10-25] MEDS: VANCOMYCIN 1,000 MG in SODIUM CHLORIDE 0.9% 250 ML IVPB STA ×2 (09:44→11:55)
[2017-10-25] MEDS ORDERED: PROPOFOL 10 MG/ML 20 ML VIAL IV ONE (13:38)
[2017-10-25] MEDS ORDERED: LIDOCAINE 1% INJ 10MG/ML (20 ML MDV) ONE (13:38)
--- NOTE | 2017-10-25 13:57 | P.PCN ---
Date of Procedure: 10/25/17 Procedure(s) Performed: BRIEF HISTORY: Patient is a 72-year-old, pleasant, benign esophageal stricture diagnosed 15 years ago for which she undergoes upper endoscopy with periodic dilation. She recently had an episode of food impaction and underwent an upper endoscopy with food removal in August 2017 and now scheduled for an upper endoscopy with an elective esophageal dilation. She was premedicated with gentamicin and vancomycin for history of prosthetic aortic valve. PROCEDURE PERFORMED: Esophagoscopy with dilation PREOPERATIVE DIAGNOSIS: History of esophageal stricture/progressive dysphagia to solids. IV sedation per anesthesia. PROCEDURE: After informed consent was obtained, the patient was brought into the endoscopy unit. IV sedation was administered by Anesthesia under continuous monitoring. Initially the Olympus GIF-140 video endoscope was inserted into the mouth. Esophagus intubated without any difficulty. It was gradually advanced into the distal esophagus and at 32 cm from the incisors there was a tight esophagus which are identified. At this time the esophageal stricture was dilated using 10 to 12 mm TTS balloon in a sequential fashion for total of 2 minutes. Following this I was not able to advance the scope into the distal esophagus.. The rest of the esophagus appeared normal. There were no erosions or ulcerations seen and the patient tolerated the procedure well. IMPRESSION: 1. Distal esophageal stricture status post balloon dilation using 10-12 mm TTS balloon as described above. 2. Scope could not be advanced beyond esophageal stricture. RECOMMENDATIONS: The findings of this examination were discussed with the patient as well as a family. She was advised to be on a clear liquid diet and advance as tolerated tomorrow. She will follow up in office as needed.
[2017-10-25 14:30] VITALS: BP 124/73; PULSE 65
== END 2017-10-25 14:52 | disposition home or self-care (01) ==
LOC: ORWHC2ENDO 07:18
PROVIDERS: ATTEND Internal Medicine Gastroenterology
DX: K22.2 Esophageal obstruction (principal); I10 Essential (primary) hypertension; E78.5 Hyperlipidemia, unspecified; K21.9 Gastro-esophageal reflux disease without esophagitis; Z95.2 Presence of prosthetic heart valve; Z88.0 Allergy status to penicillin; Z88.2 Allergy status to sulfonamides; Z88.6 Allergy status to analgesic agent; Z79.899 Other long term (current) drug therapy; Z79.82 Long term (current) use of aspirin
CPT/HCPCS: 43249; J1580; J3370; J2001; J2704; C1726

== ENCOUNTER → 2018-01-17 | Outpatient (CLI) | payer MEDICARE ==
--- NOTE | 2018-01-19 10:32 | MM ---
Reason for exam: screening (asymptomatic). Last mammogram was performed 1 year and 1 month ago. History: Patient is postmenopausal. Family history of endometrial cancer in cousin. Benign MG stereo VAD BX LT of the left breast, December 10, 2014. Physical Findings: A clinical breast exam by your physician is recommended on an annual basis and results should be correlated with mammographic findings. MG 3D Screening Mammo W/Cad Bilateral CC and MLO view(s) were taken. Prior study comparison: December 16, 2016, bilateral MG 3d screening mammo w/cad. December 16, 2015, bilateral MG 3d screening mammo w/cad. There are scattered fibroglandular densities. Previous mammotome biopsy in the left breast. There is chronic nodularity in the right breast. No significant changes when compared with prior studies. ASSESSMENT: Negative, BI-RAD 1 RECOMMENDATION: Routine screening mammogram of both breasts in 1 year.
== END | disposition home or self-care (01) ==
LOC: RADMAMWWP 12:46
PROVIDERS: ATTEND Family Medicine
DX: Z12.31 Encounter for screening mammogram for malignant neoplasm of breast (principal)
CPT/HCPCS: 77063; 77067

== ENCOUNTER 2018-08-23 10:07 | Day surgery (SDC) | payer MEDICARE ==
[2018-08-20 15:53] VITALS: BMI 46.8
[~2018-08-23 10:07] MED LIST changes: +HEPARIN SODIUM,PORCINE 5,000 UNIT/ML 1 ML VIAL SQ ONE; +HYDROmorphone 0.5 MG/0.5 ML SYRINGE IVP PRN; +MIDAZOLAM (PF) 2 MG/2 ML VIAL IV PRN; +ONDANSETRON 4 MG/2 ML VIAL IVP ONE; +Pre Op ABX Message 1 EACH MISC MISCELLANE ONE
[2018-08-23 10:44] VITALS: TEMP 96
[2018-08-23] MEDS ORDERED: LIDOCAINE 1% 20 ML VIAL (10MG/ML) FOR IV START INTRADERMA ONE (10:47)
[2018-08-23] MEDS ORDERED: PROPOFOL 10 MG/ML 20 ML VIAL IV ONE (11:57)
[2018-08-23] MEDS ORDERED: MIDAZOLAM 2 MG/2 ML VIAL ONE (11:57)
[2018-08-23] MEDS ORDERED: fentaNYL (PF) 50 MCG/ML 2 ML AMP ONE (11:57)
[2018-08-23] MEDS ORDERED: KETAMINE 10 MG/ML 20 ML VIAL ONE (11:57)
[2018-08-23] MEDS ORDERED: SODIUM CHLORIDE 0.9% 100 ML with CLINDAMYCIN 600 MG IV ONE ×2 (12:14)
[2018-08-23] MEDS ORDERED: LIDOCAINE 1% (PF) 10 MG/ML (30 ML SDV) SQ ONE ×2 (12:22)
--- NOTE | 2018-08-23 12:49 | P.OP ---
Date of Procedure: 08/23/18 Preoperative Diagnosis: Sebaceous cyst of scalp Postoperative Diagnosis: Sebaceous cyst of scalp Procedure(s) Performed: Excision of sebaceous cyst, ruptured, 3 x 2 cm Anesthesia: local Surgeon: Ruddy Worthy Pathology: other (Ruptured sebaceous cyst) Condition: stable Disposition: same day Indications for Procedure: 73-year-old female initially presented to surgery clinic due to large cyst on scalp. She states that this area has enlarged and become more painful. On exam , patient does have a large sebaceous cyst that appeared to be draining some clear fluid. Due to the size and location it was decided to remove the cyst in the operating room. The patient was excellent the risks, benefits and alternatives to the procedure and did provide consent prior to attending the operating suite. Operative Findings: 3 x 2 cm ruptured sebaceous cyst Description of Procedure: The patient was brought to the operating suite and placed in supine position on the operating table. Sedation was provided by anesthesia and the patient was prepped and draped in regular sterile fashion. The scalp cyst was clearly recognized and an elliptical incision was made. The cyst was noted to be ruptured and sebaceous content began to immediately exit from the wound. Metzenbaum scissors was used to dissect around the capsule. The capsule was noted to be inflamed and was very friable. The capsule was removed using both blunt and sharp dissection. Hemostasis was noted to be maintained. Copious muss irrigation was placed in the wound removing additional sebaceous content. Packing was placed within the wound and sterile dressing was applied. The patient was awakened in the operating suite and taken to postanesthesia care unit in stable condition.
[2018-08-23 13:23] VITALS: RESP 20
[2018-08-23 14:16] VITALS: BP 105/72; PULSE 64
[2018-08-27 07:24] LABS: Glucose,Whole Blood 125 mg/dL (75-99)
== END 2018-08-23 14:52 | disposition home or self-care (01) ==
LOC: OR 10:07
PROVIDERS: ATTEND Surgery
DX: L72.12 Trichodermal cyst (principal); I25.10 Atherosclerotic heart disease of native coronary artery without angina pectoris; I10 Essential (primary) hypertension; E78.00 Pure hypercholesterolemia, unspecified; K21.9 Gastro-esophageal reflux disease without esophagitis; E78.49 Other hyperlipidemia; Z90.710 Acquired absence of both cervix and uterus; Z86.718 Personal history of other venous thrombosis and embolism; Z95.2 Presence of prosthetic heart valve; Z79.82 Long term (current) use of aspirin; Z79.899 Other long term (current) drug therapy; Z88.6 Allergy status to analgesic agent; Z88.0 Allergy status to penicillin; Z88.2 Allergy status to sulfonamides
CPT/HCPCS: 88305; 11424; J2250; J1644; J2405; J2001; J3010; J2704

== ENCOUNTER → 2019-01-29 | Outpatient (CLI) | payer MEDICARE ==
--- NOTE | 2019-01-30 14:35 | MM ---
Reason for exam: screening (asymptomatic). Last mammogram was performed 1 year ago. History: Patient is postmenopausal. Family history of endometrial cancer in cousin. Benign MG stereo VAD BX LT of the left breast, December 10, 2014. MG 3D Screening Mammo W/Cad Bilateral CC and MLO view(s) were taken. Prior study comparison: January 17, 2018, bilateral MG 3d screening mammo w/cad. December 16, 2016, bilateral MG 3d screening mammo w/cad. There are scattered fibroglandular densities. Left biopsy marker noted. ASSESSMENT: Negative, BI-RAD 1 RECOMMENDATION: Routine screening mammogram of both breasts in 1 year.
== END | disposition home or self-care (01) ==
LOC: RADMAMWWP 13:29
PROVIDERS: ATTEND Family Medicine
DX: Z12.31 Encounter for screening mammogram for malignant neoplasm of breast (principal)
CPT/HCPCS: 77063; 77067